=== PATIENT | female | born 1970 | race African-American/Black ===

== ENCOUNTER 2019-03-17 08:24 | Outpatient (CLI) | payer OTHER ==
--- NOTE | 2019-03-17 15:27 | Ultrasound Report ---
RIGHT UPPER QUADRANT ABDOMINAL ULTRASOUND: 03/17/19 08:24:00 CLINICAL: Liver mass or cyst by CT. No comparison images. FINDINGS: High-resolution ultrasound demonstrated a normal liver with normal is size, contour and echogenicity. No liver mass or cyst identified. Normal hepatic vasculature and inferior vena cava. A normally distended gallbladder with no stones. The gall bladder wall measures 1.4 mm in thickness. Normal intrahepatic and extra hepatic bile ducts. The common bile duct measures 4 mm diameter. The pancreas was well imaged and normal. Normal upper abdominal aorta. The right kidney is normal and measures 10.0 x 4.5 x 4.2 cm.The renal parenchyma measures 1.2 cm in thickness . No ascites or mass. IMPRESSION: Normal study. No liver mass or cyst identified.
== END 2019-03-17 08:25 | disposition home or self-care (01) ==
LOC: EEVIPCON 08:24 → SPVWC 08:24
PROVIDERS: ATTEND Internal Medicine
DX: K76.89 Other specified diseases of liver (principal)
CPT/HCPCS: 76705